=== PATIENT | female | born 1940 | race Caucasian/White ===

== ENCOUNTER 2018-08-30 07:21 | Inpatient (IN) | payer MEDICARE, OTHER ==
[2018-08-25 13:58] VITALS: BP 169/77
[~2018-08-30] VITALS: Ht 167.6 cm; Wt 62.0 kg
[~2018-08-30 07:21] MED LIST: AMLO-150 PO; BACITRACIN 50,000 UNIT ONE; BACITRACIN OINT 500U/GM, 15 GM ONE; BUPIVACAINE/PF-EPI 0.5% 1:200K ONE; CARV-39 PO; DICL1ADH15 TD; ESTR30CR VG; FORTICAL NS; GABA300C10 PO; HYDR-3653 PO; LEVO112T2 PO; LIOT5TAB10 PO; LOSA100T14 PO; MULT-806 PO; OMEG-69 PO; PROP60TA PO; THROMBIN 20,000 UNIT VIAL TP ONE; TRAM100T13 PO; ZOLP-413 PO
[2018-08-30] MEDS ORDERED: LACTATED RINGERS 1,000 ML IV SCH (08:04)
[2018-08-30] MEDS ORDERED: CEFAZOLIN PMX 1GM/50ML 50 ML IVPB ONE (08:30)
[2018-08-30] MEDS ORDERED: FENTANYL PF 250 MCG/5ML ONE (09:03)
[2018-08-30] MEDS ORDERED: PROPOFOL 100 ML ONE (09:04)
[2018-08-30] MEDS ORDERED: ACETAMINOPHEN 500 MG TABLET PO ONE (10:00)
[2018-08-30] MEDS ORDERED: OxyconTIN ER 10 MG TAB.ER PO ONE (10:00)
[2018-08-30] MEDS ORDERED: GABAPENTIN 300 MG CAPSULE PO ONE (10:00)
[2018-08-30] MEDS ORDERED: FAMOTIDINE 20 MG TABLET PO ONE (10:00)
[2018-08-30] MEDS ORDERED: PROPOFOL 10 MG/ML, 20ML ONE (11:30)
[2018-08-30] MEDS ORDERED: ROCURONIUM 10MG/ML,5ML ONE (11:30)
[2018-08-30] MEDS ORDERED: DEXAMETHASONE 4 MG/ML, 1ML ONE (11:30)
[2018-08-30] MEDS ORDERED: ONDANSETRON 2MG/ML, 2ML ONE (11:30)
[2018-08-30] MEDS ORDERED: OXYcodone 5 MG/5 ML ORAL.SOL UDC PO PRN (12:00)
[2018-08-30] MEDS ORDERED: PROMETHAZINE 25 MG/ML, 1ML IV PRN (12:00)
[2018-08-30] MEDS ORDERED: DIAZEPAM 5 MG/ML, 2ML IVPush PRN (12:00)
[2018-08-30] MEDS ORDERED: ONDANSETRON 2MG/ML, 2ML IV PRN ×2 (12:00→15:00)
[2018-08-30] MEDS ORDERED: hydrALAzine 20 MG/ML, 1ML IV PRN (12:00)
[2018-08-30] MEDS ORDERED: LABETALOL 5MG/ML, 20ML IV PRN (12:00)
[2018-08-30] MEDS ORDERED: METHOCARBAMOL 1,000 MG in DEXTROSE 5% 100 ML IV ONE (12:30)
[2018-08-30] MEDS ORDERED: FENTANYL PF 100 MCG/2ML ONE (12:59)
[2018-08-30] MEDS: FENTANYL PF 100 MCG/2ML IV PRN ×2 (13:00→13:05)
[2018-08-30] MEDS ORDERED: HYDROmorphone 1 MG/ML, 1ML AMP ONE ×2 (13:06→13:45)
[2018-08-30] MEDS ORDERED: OXYcodone 5 MG/5 ML ORAL.SOL UDC ONE (13:07)
[2018-08-30] MEDS: HYDROmorphone 2 MG/ML, 1ML IVPush PRN ×4 (13:10→13:55)
[2018-08-30] MEDS ORDERED: PHARMACY MAY ADJ FOR RENAL FX MC PRN (14:30)
[2018-08-30 14:35] VITALS: BP 122/55
[2018-08-30] MEDS ORDERED: HYDROmorphone 2MG TABLET PO PRN (15:00)
[2018-08-30] MEDS ORDERED: DIPHENHYDRAMINE 50 MG CAPSULE PO PRN (15:00)
[2018-08-30] MEDS ORDERED: DIPHENHYDRAMINE 50 MG/ML, 1ML IM PRN (15:00)
[2018-08-30] MEDS ORDERED: PROMETHAZINE 25 MG/ML, 1ML IM PRN (15:00)
[2018-08-30] MEDS ORDERED: BISACODYL 10 MG SUPP PR PRN (15:00)
[2018-08-30] MEDS ORDERED: DIPHENHYDRAMINE 50 MG/ML, 1ML IVPush PRN (15:00)
[2018-08-30] MEDS ORDERED: MAGNESIUM HYDROXIDE 8%, 30ML UDC PO PRN (15:00)
[2018-08-30] MEDS: CEFAZOLIN PMX 1GM/50ML 50 ML IVPB SCH (18:02)
[2018-08-30] MEDS: NS + 20MEQ KCL 1,000 ML IV SCH (18:02)
[2018-08-30] MEDS: CARVEDILOL 25 MG TABLET PO SCH (18:02)
[2018-08-30] MEDS: HYDROcodone/APAP 5/325 TABLET PO PRN ×2 (19:20→20:13)
[2018-08-30 20:02] VITALS: BP 116/58
[2018-08-30] MEDS: GABAPENTIN 300 MG CAPSULE PO SCH (20:14)
[2018-08-30] MEDS: METHOCARBAMOL 750 MG in DEXTROSE 5% 100 ML IV SCH (21:00)
[2018-08-30] MEDS ORDERED: ZOLPIDEM 5MG TABLET PO PRN (21:00)
[2018-08-30] MEDS: SODIUM CHLORIDE FLUSH 10ML SYR IVF SCH (21:00)
[2018-08-31] MEDS: HYDROcodone/APAP 10/325 MG TABLET PO PRN ×6 (00:15→22:10)
[2018-08-31 00:30] VITALS: BP 96/47
[2018-08-31] MEDS: CEFAZOLIN PMX 1GM/50ML 50 ML IVPB SCH (02:53)
[2018-08-31] MEDS: NS + 20MEQ KCL 1,000 ML IV SCH (02:56)
[2018-08-31 04:11] VITALS: BP 127/52
[2018-08-31 04:46] LABS: BASOPHILS # (AUTO) 0.03 x10^3/uL (0-0.1); BASOPHILS % (AUTO) 0 % (0-1); EOSINOPHILS # (AUTO) 0.02 x10^3/uL (0-0.4); EOSINOPHILS % (AUTO) 0 % (1-7); LYMPHOCYTES # (AUTO) 1.57 x10^3/uL (1-3.4); LYMPHOCYTES % (AUTO) 17 % (22-44); MD NO; MEAN CORPUSCULAR HEMOGLOBIN 33.3 pg (27.0-34.8); MEAN CORPUSCULAR HGB CONC 33.3 g/dL (32.4-35.8); MEAN CORPUSCULAR VOLUME 99.7 fL (80-100); MONOCYTES # (AUTO) 0.57 x10^3/uL (0.2-0.8); MONOCYTES % (AUTO) 6 % (2-9); NEUTROPHILS # (AUTO) 7.32 x10^3/uL (1.8-6.8); NEUTROPHILS % (AUTO) 77 % (42-75); PLATELET COUNT 160 x10^3/uL (130-400); RED BLOOD COUNT 3.32 x10^6/uL (3.82-5.3); RED CELL DISTRIBUTION WIDTH 13.6 % (9.6-15.2)
[2018-08-31 04:56] LABS: CALCIUM 7.9 mg/dL (8.5-10.1); CHLORIDE 109 mmol/L (98-107)
[2018-08-31 05:00] LABS: ALBUMIN 2.9 g/dL (3.4-5.0); ANION GAP 7 mmol/L (5-15); CREATININE 1.02 mg/dL (0.55-1.02)
[2018-08-31] MEDS: LEVOTHYROXINE 112 MCG TABLET PO SCH (05:39)
[2018-08-31] MEDS: CARVEDILOL 25 MG TABLET PO SCH ×2 (05:39→18:29)
[2018-08-31] MEDS: METHOCARBAMOL 750 MG in DEXTROSE 5% 100 ML IV SCH ×3 (05:39→20:25)
[2018-08-31] MEDS: HYDROmorphone 2 MG/ML, 1ML IM PRN ×3 (05:50→20:24)
[2018-08-31] MEDS: TRAMADOL 100 MG PO SCH (09:00)
[2018-08-31] MEDS: SODIUM CHLORIDE FLUSH 10ML SYR IVF SCH ×2 (09:00→20:25)
[2018-08-31] MEDS: CALCITONIN NASAL 200 UNITS/0.09ML, 3.7ML NAS SCH (09:00)
[2018-08-31] MEDS: MAGNESIUM HYDROXIDE 8%, 30ML UDC PO SCH (09:00)
[2018-08-31] MEDS: GABAPENTIN 300 MG CAPSULE PO SCH ×2 (09:24→20:24)
[2018-08-31] MEDS: LIOTHYRONINE 5 MCG TABLET PO SCH (09:24)
[2018-08-31] MEDS: SENNA/DOCUSATE TABLET PO SCH (09:24)
[2018-08-31] MEDS: AMLODIPINE 5 MG TABLET PO SCH (09:24)
[2018-08-31] MEDS: PROPRANOLOL 60 MG CAP.SA.24H PO SCH (09:25)
[2018-08-31] MEDS: LOSARTAN 50MG TABLET PO SCH (09:25)
[2018-08-31 09:46] VITALS: BP 118/73
[2018-08-31 13:51] VITALS: BP 125/67
[2018-08-31] MEDS ORDERED: DIAZEPAM 5 MG/ML, 2ML IV ONE (18:30)
[2018-08-31] MEDS ORDERED: DIAZEPAM ELIXIR 1 MG/ML PO PRN (18:30)
[2018-08-31 21:01] VITALS: BP 124/69
[2018-09-01 01:15] VITALS: BP 123/65
[2018-09-01] MEDS: HYDROcodone/APAP 10/325 MG TABLET PO PRN ×6 (02:33→22:10)
[2018-09-01 05:03] LABS: BASOPHILS # (AUTO) 0.04 x10^3/uL (0-0.1); BASOPHILS % (AUTO) 1 % (0-1); EOSINOPHILS # (AUTO) 0.11 x10^3/uL (0-0.4); EOSINOPHILS % (AUTO) 1 % (1-7); LYMPHOCYTES % (AUTO) 23 % (22-44); MD NO; MEAN CORPUSCULAR HEMOGLOBIN 33.1 pg (27.0-34.8); MEAN CORPUSCULAR HGB CONC 33.2 g/dL (32.4-35.8); MEAN CORPUSCULAR VOLUME 99.7 fL (80-100); MONOCYTES # (AUTO) 0.63 x10^3/uL (0.2-0.8); MONOCYTES % (AUTO) 7 % (2-9); NEUTROPHILS # (AUTO) 6.02 x10^3/uL (1.8-6.8); NEUTROPHILS % (AUTO) 69 % (42-75); PLATELET COUNT 160 x10^3/uL (130-400); RED BLOOD COUNT 3.54 x10^6/uL (3.82-5.3); RED CELL DISTRIBUTION WIDTH 13.7 % (9.6-15.2)
[2018-09-01 05:12] LABS: ANION GAP 5 mmol/L (5-15); CALCIUM 8.1 mg/dL (8.5-10.1); CHLORIDE 110 mmol/L (98-107); CREATININE 0.97 mg/dL (0.55-1.02)
[2018-09-01] MEDS: CARVEDILOL 25 MG TABLET PO SCH ×2 (05:12→18:12)
[2018-09-01] MEDS: LEVOTHYROXINE 112 MCG TABLET PO SCH (05:12)
[2018-09-01] MEDS: METHOCARBAMOL 750 MG in DEXTROSE 5% 100 ML IV SCH (05:12)
[2018-09-01] MEDS ORDERED: DIAZEPAM 5 MG/ML, 2ML IV ONE (08:00)
[2018-09-01 08:01] VITALS: BP 121/55
[2018-09-01] MEDS: SODIUM CHLORIDE FLUSH 10ML SYR IVF SCH ×2 (08:04→20:30)
[2018-09-01] MEDS: TRAMADOL 100 MG PO SCH (08:05)
[2018-09-01] MEDS: CALCITONIN NASAL 200 UNITS/0.09ML, 3.7ML NAS SCH (08:05)
[2018-09-01] MEDS: PROPRANOLOL 60 MG CAP.SA.24H PO SCH (08:06)
[2018-09-01] MEDS: GABAPENTIN 300 MG CAPSULE PO SCH ×2 (08:06→20:29)
[2018-09-01] MEDS: LOSARTAN 50MG TABLET PO SCH (08:06)
[2018-09-01] MEDS: SENNA/DOCUSATE TABLET PO SCH (08:07)
[2018-09-01] MEDS: AMLODIPINE 5 MG TABLET PO SCH (08:07)
[2018-09-01] MEDS: MAGNESIUM HYDROXIDE 8%, 30ML UDC PO SCH (08:08)
[2018-09-01] MEDS: LIOTHYRONINE 5 MCG TABLET PO SCH (10:08)
[2018-09-01] MEDS: CYCLOBENZAPRINE 10 MG TABLET PO PRN ×2 (11:06→20:29)
[2018-09-01 14:24] VITALS: BP 125/71
[2018-09-01] MEDS ORDERED: METHOCARBAMOL 750 MG TABLET PO SCH (20:45)
[2018-09-01 21:55] VITALS: BP 154/79
[2018-09-02 01:50] VITALS: BP 154/81
[2018-09-02] MEDS: HYDROcodone/APAP 10/325 MG TABLET PO PRN ×4 (02:10→13:44)
[2018-09-02 04:51] LABS: BASOPHILS # (AUTO) 0.04 x10^3/uL (0-0.1); BASOPHILS % (AUTO) 1 % (0-1); EOSINOPHILS # (AUTO) 0.09 x10^3/uL (0-0.4); EOSINOPHILS % (AUTO) 1 % (1-7); LYMPHOCYTES # (AUTO) 2.09 x10^3/uL (1-3.4); LYMPHOCYTES % (AUTO) 26 % (22-44); MD NO; MEAN CORPUSCULAR HEMOGLOBIN 33.9 pg (27.0-34.8); MEAN CORPUSCULAR HGB CONC 34.2 g/dL (32.4-35.8); MEAN CORPUSCULAR VOLUME 99.1 fL (80-100); MEAN PLATELET VOLUME 9.1 fL (7.4-10.4); MONOCYTES # (AUTO) 0.56 x10^3/uL (0.2-0.8); MONOCYTES % (AUTO) 7 % (2-9); NEUTROPHILS # (AUTO) 5.23 x10^3/uL (1.8-6.8); NEUTROPHILS % (AUTO) 65 % (42-75); PLATELET COUNT 159 x10^3/uL (130-400); RED BLOOD COUNT 3.34 x10^6/uL (3.82-5.3); RED CELL DISTRIBUTION WIDTH 13.4 % (9.6-15.2)
[2018-09-02 04:58] LABS: ANION GAP 5 mmol/L (5-15); CALCIUM 8.1 mg/dL (8.5-10.1); CHLORIDE 108 mmol/L (98-107)
[2018-09-02 05:00] LABS: CREATININE 0.88 mg/dL (0.55-1.02)
[2018-09-02] MEDS: CARVEDILOL 25 MG TABLET PO SCH (06:06)
[2018-09-02] MEDS: LEVOTHYROXINE 112 MCG TABLET PO SCH (06:06)
[2018-09-02] MEDS: CYCLOBENZAPRINE 10 MG TABLET PO PRN ×2 (06:06→13:12)
[2018-09-02 08:06] VITALS: BP 100/63
[2018-09-02] MEDS: SODIUM CHLORIDE FLUSH 10ML SYR IVF SCH (08:39)
[2018-09-02] MEDS: LOSARTAN 50MG TABLET PO SCH (08:40)
[2018-09-02] MEDS: TRAMADOL 100 MG PO SCH (08:40)
[2018-09-02] MEDS: PROPRANOLOL 60 MG CAP.SA.24H PO SCH (08:40)
[2018-09-02] MEDS: CALCITONIN NASAL 200 UNITS/0.09ML, 3.7ML NAS SCH (08:40)
[2018-09-02] MEDS: GABAPENTIN 300 MG CAPSULE PO SCH (08:41)
[2018-09-02] MEDS: SENNA/DOCUSATE TABLET PO SCH (08:41)
[2018-09-02] MEDS: LIOTHYRONINE 5 MCG TABLET PO SCH (08:41)
[2018-09-02] MEDS: AMLODIPINE 5 MG TABLET PO SCH (08:41)
[2018-09-02] MEDS: MAGNESIUM HYDROXIDE 8%, 30ML UDC PO SCH (08:42)
[2018-09-02] MEDS ORDERED: HEPARIN 5,000 UNITS/ML, 1ML SQ SCH (11:00)
[2018-09-02 13:08] VITALS: BP 125/57
[2018-09-02] MEDS ORDERED: HYDR-3622 PO (13:32)
[2018-09-02] MEDS ORDERED: DOCU-131 PO (13:33)
[2018-09-02] MEDS ORDERED: CYCL-259 PO (13:33)
== END 2018-09-02 14:51 | disposition home or self-care (01) | DRG 472 ==
LOC: ORIP 07:21 → 4NOR 14:15 → DCLOUNGE 09-02 14:25
PROVIDERS: ADMIT Neurological Surgery; ATTEND Neurological Surgery
PROC: 0RG2071 Fusion of 2 or more Cervical Vertebral Joints with Autologous Tissue Substitute, Posterior Approach, Posterior Column, Open Approach (ICD-10-PCS; principal; 2018-08-30 09:30)
DX: M48.02 Spinal stenosis, cervical region (principal); M47.12 Other spondylosis with myelopathy, cervical region; M43.16 Spondylolisthesis, lumbar region; M51.36 Other intervertebral disc degeneration, lumbar region; G89.29 Other chronic pain; M79.7 Fibromyalgia
CPT/HCPCS: 36415; 72040; 80048; 82040; 85025; C1713; G0378; J0690; J1100; J1170; J2405; J2704; J3010; J3360; J3480; C1762; J2800; J7120